=== PATIENT | female | born 1980 | race Caucasian/White ===

== ENCOUNTER 2019-02-19 08:07 | Inpatient (IN) | payer OTHER, SELFPAY ==
[2019-02-19 08:39] VITALS: BMI 26.0
[2019-02-19] MEDS ORDERED: Lidocaine 1% (PF) 30 ML VIAL SC PRN (10:31)
[2019-02-19] MEDS ORDERED: Butorphanol Tartrate 1 MG/ML VIAL SLOW IVP PRN (10:31)
[2019-02-19] MEDS ORDERED: hydrALAZINE 20 MG/ML VIAL SLOW IVP PRN ×2 (10:31→21:27)
[2019-02-19] MEDS ORDERED: Ibuprofen 800 MG TAB PO PRN (10:31)
[2019-02-19] MEDS ORDERED: NS / Oxytocin 40 units/1000ml 1,000 ML IV PRN (10:31)
[2019-02-19] MEDS ORDERED: Ondansetron PF 4 MG/2 ML Vial IVP PRN ×3 (10:31→21:27)
[2019-02-19] MEDS ORDERED: Lactated Ringer's 1,000 ML IV SCH (10:45)
[2019-02-19] MEDS ORDERED: Penicillin G Potassium 5 MILL.UNITS in Sodium Chloride 0.9% 100 ML IVPB SCH (10:45)
[2019-02-19] MEDS ORDERED: Sodium Chloride 0.9% 100 ML ONE (10:56)
[2019-02-19] MEDS ORDERED: Penicillin G Potassium 5 MILL.UNITS VIAL ONE (10:56)
[2019-02-19] MEDS: Lactated Ringer's 1,000 ML IV SCH ×2 (11:08→22:13)
[2019-02-19] MEDS ORDERED: Albuterol Sulfate 2.5 mg/3 ml Neb ONE ×2 (11:22→15:29)
[2019-02-19 11:41] LABS: Hemoglobin 12.7 g/dL (12.0-16.0); Mean Corpuscular HGB CONC 34.9 g/dL (32.0-36.0); Mean Corpuscular Hemoglobin 29.5 pg (27.0-31.0); Mean Corpuscular Volume 84.5 fL (78.0-98.0); Mean Platelet Volume 8.7 fL (7.4-10.4); Platelet Count 237 thou/uL (130-400); RBC Distribution Width 13.2 % (11.5-14.5); White Blood Cell (WBC) Count 13.5 thou/uL (4.8-10.8)
[2019-02-19] MEDS ORDERED: Fentanyl 4 mcg/Bup 0.1% Cadd 100 ML ONE (12:16)
[2019-02-19 12:21] LABS: HBSAg Index 0.22 S/CO (0-0.99); Hep B Surf Ag Non-Reactive S/CO (NonReactive); Syphilis Antibody Nonreactive (Nonreactive); Syphilis Antibody Index 0.05 S/CO (<1.00 Non-Reactive)
[2019-02-19] MEDS ORDERED: diphenhydrAMINE 50 MG/ML VIAL IVP PRN (12:44)
[2019-02-19] MEDS ORDERED: Acetaminophen 325 MG TAB PO PRN (12:44)
[2019-02-19] MEDS ORDERED: Promethazine HCl 25 MG/ML VIAL IM PRN (12:44)
[2019-02-19] MEDS ORDERED: ePHEDrine/0.9% NaCl/PF SYRINGE 50 mg/10 ml SLOW IVP PRN (12:44)
[2019-02-19] MEDS ORDERED: Naloxone HCl 0.4 mg/ml Vial IVP PRN ×2 (12:44)
[2019-02-19] MEDS ORDERED: Lactated Ringer's 500 ML IV PRN (12:44)
[2019-02-19] MEDS ORDERED: Fentanyl 4 mcg/Bupivacaine 0.1% Cassette 100 ML EPIDURAL SCH (12:45)
[2019-02-19] MEDS ORDERED: Communication Order-Pharmacy FS SCH (12:45)
[2019-02-19] MEDS ORDERED: Phenergan/Codeine 10-6.25mg/5ml UDCUP PO PRN ×2 (13:07→13:10)
--- NOTE | 2019-02-19 13:27 | PDOC.LDHP ---
Labor and Delivery H&P Chief complaint: contractions HPI: 38yo at 39w0d by LMP here with painful ctx since this am. No VB LOF. Current gestational age (weeks): 39 Due date: 02/26/19 Dating criteria: last menstrual period Grav: 5 Para: 4 Current complications: gestational diabetes Abnormal US findings: No Past Medical History: asthma has been having exacerbation last 3w, has been on steroids from 20-40mg for last 3 weeks, cont to have a lingering cough. Current medications: pre- vitamins, other (prednisone 20mg, albuterol neb q4h, mucinex) Previous surgical history: none Allergies/Adverse Reactions: Allergies Allergy/AdvReac Type Severity Reaction Status Date / Time No Known Allergies Allergy Verified 02/19/19 08:51 Social history: none - Physical Exam Vital signs reviewed and normal: yes General: NAD Heart: RRR Lungs: CTAB Abdomen: gravid Extremeties: no edema FHT: category 1 [place] contractions every: 4min - Vaginal Exam cm dilated: 5 Effacement: 90% Station: 0 (at 1000) - OB Labs RH: positive Antibody Screen: negative HIV: negative RPR: negative HEPSAg: negative 1 hour GCT: unknown (not done, pt was checking blood sugars and were wnl) GBS: positive Urine drug screen: negative Rubella: immune - Assessment L&D Assessment: term patient in labor - Plan Plan: admit to L&D, labor augmentation if indicated, GBS antibiotic prophylaxis , informed consent obtained, anesthesia consult for pain management -: stress dose steroids and nebs, cough syrup for asthma/bronchitis.
[2019-02-19] MEDS: Penicillin G 2.5 MILL.units 2.5 MILL.UNITS in Premix Bag 1 BAG IVPB SCH ×2 (15:04→22:13)
[2019-02-19] MEDS ORDERED: Hydrocortisone Sod Succ/PF 100 mg/2 ml Vial ONE (16:05)
[2019-02-19] MEDS: Hydrocortisone Sod Succ/PF 100 mg/2 ml Vial IVP SCH ×2 (16:15→22:09)
[2019-02-19] MEDS ORDERED: NS w/ Oxytocin 10 units 500 ML ONE (16:59)
[2019-02-19] MEDS ORDERED: NS w/ Oxytocin 10 units 500 ML IV SCH (17:15)
--- NOTE | 2019-02-19 17:17 | PDOC.EVN ---
Event Note - Event Note Event Note: AROM - clear /-1 Pt reports coughing worse with lying back. O2 sat 91% lungs with crackles/coarse sounds. Chest xray ordered. >> no acute process seen, no cardiomegaly Dr. Herrera updated
--- NOTE | 2019-02-19 17:48 | RAD ---
SINGLE VIEW OF THE CHEST: 02/19/19 COMPARISON: None. HISTORY: Cough. FINDINGS: Single view of the chest shows a normal sized cardiomediastinal silhouette. There is no evidence of c onsolidation, mass, or pleural effusion. The bones are unremarkable. IMPRESSION: No evidence of acute cardiopulmonary disease. POS: C
--- NOTE | 2019-02-19 19:12 | PDOC.OPDEL ---
OB Operative/Delivery Note Delivery Dr/Surgeon: Sharon Assist: n/a Pre-Delivery Diagnosis: active labor Procedure/Post Delivery Dx: spontaneous vaginal delivery Weeks gestation: 39 Anesthesia: epidural - Findings A Sex: male - 1 min: 8 - 5 min: 9 - Additional Findings/Plan Placenta delivered: spontaneous Repaired Obstetrical Laceration: none Estimated blood loss: 130cc Post delivery plan: routine recovery
[2019-02-19] MEDS ORDERED: Preparation H Ointment 28 GM TUBE PR PRN (21:27)
[2019-02-19] MEDS ORDERED: Lanolin Ointment 7 GM TUBE TOP PRN (21:27)
[2019-02-19] MEDS ORDERED: HYDROcodone/Acetaminophen 5/325 mg Tablet PO PRN ×2 (21:27)
[2019-02-19] MEDS ORDERED: Benzocaine-Menthol 82.5 ML CAN TOP PRN (21:27)
[2019-02-19] MEDS ORDERED: diphenhydrAMINE 25 MG CAP PO PRN (21:27)
[2019-02-19] MEDS ORDERED: Milk Of Magnesia 30 ML UDCUP PO PRN (21:27)
[2019-02-19] MEDS ORDERED: Bisacodyl 10 MG SUPP PR PRN (21:27)
[2019-02-19] MEDS ORDERED: NS / Oxytocin 40 units/1000ml 1,000 ML IV SCH (21:27)
[2019-02-19] MEDS ORDERED: Docusate Calcium (SURFAK) 240 MG CAP PO SCH (21:45)
[2019-02-19] MEDS: Ibuprofen 800 MG TAB PO SCH (22:08)
[2019-02-20] MEDS ORDERED: Sodium Chloride 0.9% 10 ML ONE (05:40)
[2019-02-20] MEDS: Hydrocortisone Sod Succ/PF 100 mg/2 ml Vial IVP SCH ×2 (05:46→13:49)
[2019-02-20] MEDS: Ibuprofen 800 MG TAB PO SCH ×3 (05:47→21:08)
[2019-02-20] MEDS: Ferrous Sulfate 325 MG TAB PO SCH ×2 (07:48→17:20)
[2019-02-20] MEDS ORDERED: guaiFENesin 100 MG/5 ML UDCUP PO PRN (08:36)
[2019-02-20] MEDS ORDERED: Adacel (T-DAP) 0.5 ML SYRINGE IM ONE (09:00)
[2019-02-20] MEDS ORDERED: Docusate Calcium (SURFAK) 240 MG CAP PO SCH (09:00)
[2019-02-20] MEDS: Prenatal Vitamin 1 TAB PO SCH (09:08)
[2019-02-20] MEDS: Polyethylene Glycol 3350 17 GM Packet PO SCH (09:08)
[2019-02-20] MEDS: Phenergan/Codeine 10-6.25mg/5ml UDCUP PO PRN ×4 (09:08→22:48)
[2019-02-20] MEDS ORDERED: guaiFENesin ER 600 MG TAB PO SCH ×2 (13:10→13:30)
--- NOTE | 2019-02-20 13:10 | PDOC.PP ---
Post Progress Note Post Day #: 1 Subjective: cont to have coughing wheezing, no SOB, nl lochia, no pelvic pain, just pressure PO intake tolerated: yes Flatus: yes Ambulation: yes Vital Signs (12 hours) Temp Pulse Resp BP Pulse Ox 02/20/19 11:41 97.6 F 67 24 H 109/59 L 100 02/20/19 11:23 76 14 97 02/20/19 08:20 97.6 F 65 22 H 125/61 94 L 02/20/19 08:08 67 14 92 L 02/20/19 08:00 94 L 02/20/19 04:45 98.0 F 66 18 115/65 97 Weight Weight 138 lb - Physical Examination General: NAD Cardiovascular: RRR Deviation from normal: bibasilar crackles wheezing Abdominal: appropriately TTP Fundus firm & at: umb-2 Extremities: negative homans (B) Neurological: no gross focal deficits Psychiatric: A&Ox3 Result Diagrams: 02/19/19 11:26 Additional Labs: Post Labs Blood Type O POSITIVE 02/19/19 11:26 Hep Bs Antigen Non-Reactive S/CO (NonReactive) 02/19/19 11:25 - Assessment/Plan PPD1 s/p TVSD VSSAF Asthma exac- on stress dose steroids, up at 1900, start prednisone 20mg tomorrow x 7d then taper steroids. Cont prn nebs and cough syrup. Start sched mucinex and zyrtec. Doing well Rh pos RImm Cont PP care, DC tomorrow if stable.
[2019-02-20] MEDS ORDERED: Loratadine 10 MG TAB PO SCH (13:30)
[2019-02-20] MEDS: guaiFENesin ER 600 MG TAB PO SCH (21:08)
[2019-02-21] MEDS: Ibuprofen 800 MG TAB PO SCH ×2 (04:57→13:26)
--- NOTE | 2019-02-21 06:41 | PDOC.PP ---
Post Progress Note Post Day #: 2 Subjective: Doing well, some cough but otherwise well...still on her steroids PO intake tolerated: yes Flatus: yes Ambulation: yes Vital Signs (12 hours) Temp Pulse Resp BP Pulse Ox 02/21/19 04:55 97.7 F 62 18 115/64 02/21/19 00:00 98.3 F 72 20 116/57 L 93 L 02/20/19 19:51 98.4 F 75 20 120/59 L 97 02/20/19 18:40 75 16 94 L Weight Weight 138 lb - Physical Examination General: NAD Cardiovascular: no m/r/g Respiratory: non-labored breathing Abdominal: lochia, no distention, appropriately TTP Extremities: negative homans (B) Neurological: no gross focal deficits Psychiatric: A&Ox3, normal affect Result Diagrams: 02/19/19 11:26 Additional Labs: Post Labs Blood Type O POSITIVE 02/19/19 11:26 Hep Bs Antigen Non-Reactive S/CO (NonReactive) 02/19/19 11:25 (1) Vaginal delivery Code(s): O80 - ENCOUNTER FOR FULL-TERM UNCOMPLICATED DELIVERY Status: Acute - Assessment/Plan Doing well PPD2..s/p asthma exacerbation and s/p stress dose steroids, doing well. Home today. She has her steroid nebs. F/U 2 weeks
[2019-02-21] MEDS: Phenergan/Codeine 10-6.25mg/5ml UDCUP PO PRN ×2 (07:11→11:19)
[2019-02-21] MEDS ORDERED: predniSONE 20 MG TAB PO SCH (08:00)
[2019-02-21] MEDS: Ferrous Sulfate 325 MG TAB PO SCH (08:26)
[2019-02-21] MEDS: Prenatal Vitamin 1 TAB PO SCH (08:30)
[2019-02-21] MEDS: guaiFENesin ER 600 MG TAB PO SCH (08:30)
[2019-02-21] MEDS: Polyethylene Glycol 3350 17 GM Packet PO SCH (08:34)
[2019-02-21] MEDS ORDERED: Loratadine 10 MG TAB PO SCH (09:00)
[2019-02-21 10:59] VITALS: BP 144/69; TEMP 97.8
[2019-02-21] MEDS ORDERED: Cetirizine HCl 10 MG TAB PO SCH (13:10)
== END 2019-02-21 14:30 | disposition home or self-care (01) | DRG 807 ==
LOC: L&D/OP 08:07 → L&D 10:45 → 3SW 21:42
PROVIDERS: ADMIT Student in an Organized Health Care Education/Training Program; ATTEND Student in an Organized Health Care Education/Training Program
PROC: 10E0XZZ Delivery of Products of Conception, External Approach (ICD-10-PCS; principal; 2019-02-19)
PROC: 10907ZC Drainage of Amniotic Fluid, Therapeutic from Products of Conception, Via Natural or Artificial Opening (ICD-10-PCS; 2019-02-19)
DX: O24.420 Gestational diabetes mellitus in childbirth, diet controlled (principal); Z37.0 Single live birth; J45.909 Unspecified asthma, uncomplicated; O99.52 Diseases of the respiratory system complicating childbirth; Z3A.39 39 weeks gestation of pregnancy
CPT/HCPCS: 36415; 71045; 85027; 86780; 86850; 86900; 86901; 87340; 94640; J1720; J2001; J2540; J2590; J3490; J7512; J7611; J7620